=== PATIENT | female | born 1970 | race Hispanic/Latino ===

== ENCOUNTER 2020-04-18 09:25 | Emergency (ER) | payer OTHER ==
[~2020-04-18] VITALS: Ht 154.9 cm; Wt 97.1 kg
[2020-04-18] MEDS ORDERED: SODIUM CHLORIDE 0.9% 1000ML 1,000 ML IV SCH (09:45)
[2020-04-18] MEDS ORDERED: ONDANSETRON HCL INJ 2MG/ML 2ML 2 MG/ML VIAL IV PRN (09:45)
[2020-04-18] MEDS ORDERED: FENTANYL CITRATE/PF 100MCG/2 ML INJ IV ONE (09:45)
--- NOTE | 2020-04-18 09:48 | Emergency Department Note ---
History of Present Illnes History of Present Illness Chief Complaint: Abdominal Complaints History of Present Illness This is a 50 year old female Chief Complaint Comment GIVEN 2 RX FOR RUQ ABD PAIN. ONSET THURSDAY. NAUSEA NO VOMITING. MENOPAUSE. STILL HAS GALL BLADDER. has tried T3 and acid metal tube cutter at home with only minimal relief. Historian: Patient Arrival Mode: Car Alligator Shear Operator Required: No Onset (how long ago): day(s) (3) Location: RUQ Quality: Sharp Radiation: Reports non-radiation Severity: moderate Onset quality: sudden Duration (how long): day(s) (3) Timing of current episode: intermittent Progression: worsening Chronicity: new Context: Denies recent illness Relieving factors: none Exacerbating factors: none Associated symptoms: Reports other (Nausea) Treatments prior to arrival: none Past Medical/Family History Physician Review I have reviewed the patient's past medical and family history. Any updates have been documented here. Past Medical History Recent Fever: No Clinical Suspicion of Infectio: No New/Unexplained Change in Ment: No Past Medical History: Hypertension Other Medical History: OBESITY Past Surgical History: Social History Physically hurt or threatened: No Review of Systems Review of Systems Constitutional: Reports no symptoms EENTM: Reports no symptoms Cardiovascular: Reports no symptoms Respiratory: Reports no symptoms Gastrointestinal: Reports as per HPI, Reports abdominal pain (RUQ), Reports nausea; Denies vomiting Genitourinary: Reports no symptoms Musculoskeletal: Reports no symptoms Integumentary: Reports no symptoms Neurological: Reports no symptoms Psychological: Reports no symptoms Endocrine: Reports no symptoms Hematological/Lymphatic: Reports no symptoms Physical Exam Related Data Allergies: Coded Allergies: Sulfa (Sulfonamide Antibiotics) (Verified Allergy, Unknown, 04/18/20) Triage Vital Signs Vital Signs Date Time Temp Pulse Resp B/P (MAP) Pulse Ox O2 Delivery O2 Flow Rate FiO2 04/18/20 09:37 98.1 77 18 130/85 100 Room Air Vital signs reviewed: Yes Physical Exam CONSTITUTIONAL Constitutional: Present well-developed, Present well-nourished HENT HENT: Present normocephalic, Present atraumatic, Present oropharynx clear/moist, Present nose normal HENT L/R: Present left ext ear normal, Present right ext ear normal EYES Eyes: Reports PERRL, Reports conjunctivae normal NECK Neck: Present ROM normal PULMONARY Pulmonary: Present effort normal, Present breath sounds normal CARDIOVASCULAR Cardiovascular: Present regular rhythm, Present heart sounds normal, Present capillary refill normal, Present normal rate GASTROINTESTINAL Abdominal: Present soft, Present bowel sounds normal, Present tender (RUQ) GENITOURINARY Genitourinary: Present exam deferred SKIN Skin: Present warm, Present dry MUSCULOSKELETAL Musculoskeletal: Present ROM normal NEUROLOGICAL Neurological: Present alert, Present oriented x 3, Present no gross motor or sensory deficits PSYCHOLOGICAL Psychological: Present mood/affect normal, Present judgement normal Procedures 12 Lead ECG Interpretation ECG Interpretation : Alligator Shear Operator: Interpreted by ED physician Date: Apr 18, 2020 Rhythm: sinus rhythm Rate: normal BPM: 65 QRS axis: normal ST segments normal: Yes T waves normal: Yes Clinical Impression: non-specific ECG Assessment & Plan Medical Decision Making MDM 50-year-old female who presents with medical history significant for hypertension presents to the emergency department for right upper quadrant abdominal pain. This started on Thursday. She was seen by her primary doctor on Thursday and prescribed antacid and Tylenol threes. This has not been helping much. The pain is made worse by eating. Initial differential significant for cholecystitis versus cholelithiasis versus choledocholithiasis versus gastritis versus peptic ulcer disease. Workup shows likely gallstones on ultrasound. Duscussed patient with Dr. Vladislav Alfaro and will schedule for outpatient appointment tomorrow for elective surgery. patient states agreement to plan and appropriate for DC. Will Rx MSIR and Bentyl for pain. Reassessment Reassessment time: 10:45 Reassessment Well appearing, NAD Assessment & Plan Final Impression: (1) Cholelithiases Depart Disposition: HOME, SELF-CARE Last Vital Signs Date Time Temp Pulse Resp B/P (MAP) Pulse Ox O2 Delivery O2 Flow Rate FiO2 04/18/20 09:37 98.1 77 18 130/85 100 Room Air Medications in the ED Ondansetron HCl 4 mg Q4H PRN IV NAUSEA AND VOMITING; Start 04/18/20 at 09:45; Stop 05/18/20 at 09:44; Status UNV Sodium Chloride 1,000 ml @ 100 mls/hr Q10H IV ; Start 04/18/20 at 09:45; Stop 05/18/20 at 09:44; Status UNV Fentanyl Citrate 50 mcg ONCE ONCE IV ; Start 04/18/20 at 09:45; Stop 04/18/20 at 09:46; Status UNV MAR,MAYITO J MD Apr 18, 2020 09:48
[2020-04-18 10:30] LABS: BASOPHILS % 0.2 % (0.0-1.0); EOSINOPHILS # (AUTO) 0.1 (0.0-0.4); EOSINOPHILS % 0.9 % (0.0-6.0); HEMATOCRIT 42.2 % (34.2-44.1); HEMOGLOBIN 13.9 g/dL (12.0-16.0); LYMPHOCYTES # (AUTO) 1.2 (1.0-3.2); LYMPHOCYTES % 13.6 % (18.0-39.1); MEAN CORPUSCULAR HEMOGLOBIN 28.7 pg (28-32); MEAN CORPUSCULAR HGB CONC 32.9 g/dL (31-35); MONOCYTES # (AUTO) 0.5 (0.2-0.8); NEUTROPHILS # (AUTO) 7.1 (2.1-6.9); PLATELET COUNT 294 x10e3/uL (140-360); RED BLOOD COUNT 4.85 x10e6/uL (3.6-5.1); RED CELL DISTRIBUTION WIDTH 12.5 % (11.7-14.4)
--- NOTE | 2020-04-18 10:40 | Diagnostic Imaging Report ---
EXAM: US GALLBLADDER DATE: 04/18/2020 9:53 AM INDICATION: Right upper quadrant pain COMPARISON: None TECHNIQUE: Transverse and longitudinal ritchie scale and color doppler sonographic images of the right upper quadrant were obtained. FINDINGS: LIVER 14.1 cm in the right midclavicular line. Liver is diffusely echogenic with normal contour, no masses. GALLBLADDER Gallbladder is filled with echogenic debris with internal vascularity, possibly artifact due to echogenicity. Negative for thickening, distention or pericholecystic fluid Negative reported sonographic Brown's sign. BILE DUCTS No intra nor extra-hepatic biliary dilation. Common bile duct measures 0.3cm PANCREAS: Visualized portions are normal. RIGHT KIDNEY: 10.8 cm Echogenicity: Normal Collecting System: No hydronephrosis Stones: None Cyst/Mass: None VESSELS: Aorta: Visualized portions are within normal size limits Inferior Vena Cava: Visualized portions are normal Main Portal Vein: 0.8 cm, normal size with hepatopetal flow. FREE FLUID: None IMPRESSION: 1. Gallbladder is full of debris with mild internal vascularity. No evidence of acute cholecystitis. Underlying/intraluminal mass is difficult to exclude given internal vascularity. Negative for biliary dilatation. Consider follow-up contrast enhanced cross-sectional imaging for further evaluation. 2. Hepatic steatosis. Signed by: Marquis Cruz MD on 04/18/2020 10:37 AM
[2020-04-18 10:54] LABS: ALANINE AMINOTRANSFERASE 69 IU/L (0-55); ALBUMIN 3.8 g/dL (3.5-5.0); ALKALINE PHOSPHATASE 56 IU/L (40-150); ANION GAP 13.8 mmol/L (8-16); BLOOD UREA NITROGEN 10 mg/dL (7-26); BUN/CREATININE RATIO 14 (6-25); CALCIUM 9.5 mg/dL (8.4-10.2); CARBON DIOXIDE 21 mmol/L (22-29); CHLORIDE 107 mmol/L (98-107); CREATININE, SERUM 0.73 mg/dL (0.57-1.11); EST GLOMERULAR FILTRATION RATE > 60 ML/MIN (60-); GLUCOSE 96 mg/dL (74-118); POTASSIUM 3.8 mmol/L (3.5-5.1); SODIUM 138 mmol/L (136-145)
[2020-04-18 11:18] LABS: HCG,QUANTITATIVE 1.28 mIU/mL (0-10)
--- OUTSIDE RECORDS SUMMARY | 2020-04-18 11:22 | XMS REPORT | Continuity of Care Document ---
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 Allergies, Adverse Reactions, Alerts This patient has no known allergies or adverse reactions. Medications This patient has no known medications. Procedures This patient has no known procedures. Results Test Description Test Time Test Comments Results Result Comments Source GALLBLADDER 2020-04-18 10:32:[address] [address] Patient Name: JOEY LOMAX MR #: [id number] : 1970 Age/Sex: 50/F Req #: [id number] Adm Physician: Ordered by: Mayito Gore MD Report #: [id number] Location: ER Room/Bed: Procedure: [id number] US/US GALLBLADDER Exam Date: 04/18/20 Exam Time: 0953 REPORT STATUS: Signed EXAM: US GALLBLADDER DATE: 04/18/2020 9:53 AM INDICATION: Right upper quadrant pain COMPARISON: None TECHNIQUE: Transverse and longitudinal ritchie scale and color doppler sonographic images of the right upper quadrant were obtained. FINDINGS: LIVER 14.1 cm in the right midclavicular line. Liver is diffusely echogenic with normal contour, no masses. GALLBLADDER Gallbladder is filled with echogenic debris with internal vascularity, possibly artifact due to echogenicity. Negative for thickening, distention or pericholecystic fluid Negative reported sonographic Brown's sign. BILE DUCTS No intra nor extra-hepatic biliary dilation. Common bile duct measures 0.3cm PANCREAS: Visualized portions are normal. RIGHT KIDNEY: 10.8 cm Echogenicity: Normal Collecting System: No hydronephrosis Stones: None Cyst/Mass: None VESSELS: Aorta: Visualized portions are within normal size limits Inferior Vena Cava: Visualized portions are normal Main Portal Vein: 0.8 cm, normal size with hepatopetal flow. FREE FLUID: None IMPRESSION: 1. Gallbladder is full of debris with mild internal vascularity. No evidence of acute cholecystitis. Underlying/intraluminal mass is difficult to exclude given internal vascularity. Negative for biliary dilatation. Consider follow-up contrast enhanced cross-sectional imaging for further evaluation. 2. Hepatic steatosis. Signed by: Amos Cruz MD on 04/18/2020 10:37 AM Dictated By: AMOS CRUZ MD [id number] Transcribed By: CLAUDIO on 04/18/20 1037 COPY TO: MAYITO GORE MD
[2020-04-18] MEDS ORDERED: BENTYL10 MG/1 ML PO (12:59)
[2020-04-18] MEDS ORDERED: ZOFRAN4 MG PO (13:02)
[2020-04-18 13:13] LABS: BILIRUBIN,URINE NEGATIVE (NEGATIVE); CLARITY,URINE CLEAR (CLEAR); COLOR,URINE YELLOW (YELLOW); KETONES,URINE 1+ (NEGATIVE); LEUKOCYTE ESTERASE ,URINE MODERATE (NEGATIVE); NITRITE,URINE NEGATIVE (NEGATIVE); PROTEIN,URINE DIPSTICK NEGATIVE (NEGATIVE); URINE UROBILINOGEN 1 mg/dL (0.2 - 1)
[2020-04-18 13:16] LABS: BACTERIA,URINE FEW /HPF; EPITHELIAL CELLS,URINE FEW /LPF; RBC,URINE 0-5 /HPF (0-5)
[2020-04-19] MEDS ORDERED: AMLODIPINE BESYL5 MG PO (06:39)
== END 2020-04-18 13:14 | disposition home or self-care (01) ==
LOC: ER 09:36
DX: K80.20 Calculus of gallbladder without cholecystitis without obstruction (principal); R10.11 Right upper quadrant pain; R11.0 Nausea; I10 Essential (primary) hypertension; E66.9 Obesity, unspecified
CPT/HCPCS: 36415; 76705; 80053; 81001; 83690; 84702; 85025; 93005; 99284; J2405; J3010; J7030

== ENCOUNTER 2020-04-18 22:35 | Inpatient (IN) | payer OTHER ==
[~2020-04-18] VITALS: Ht 154.9 cm; Wt 97.5 kg
[~2020-04-18 22:35] MED LIST: BENTYL10 MG/1 ML PO; ZOFRAN4 MG PO
[2020-04-18] MEDS ORDERED: ONDANSETRON HCL INJ 2MG/ML 2ML 2 MG/ML VIAL IV STA (22:47)
[2020-04-18] MEDS ORDERED: MORPHINE SULFATE INJ 4 MG/ML INJ 1ML IV STA (23:02)
[2020-04-18 23:06] LABS: BASOPHILS % 0.3 % (0.0-1.0); HEMATOCRIT 40.8 % (34.2-44.1); HEMOGLOBIN 13.6 g/dL (12.0-16.0); LYMPHOCYTES # (AUTO) 1.1 (1.0-3.2); LYMPHOCYTES % 9.1 % (18.0-39.1); MEAN CORPUSCULAR HGB CONC 33.3 g/dL (31-35); MONOCYTES # (AUTO) 0.6 (0.2-0.8); MONOCYTES % 5.2 % (4.4-11.3); NEUTROPHILS # (AUTO) 9.9 (2.1-6.9); NEUTROPHILS % 84.9 % (38.7-80.0); PLATELET COUNT 278 x10e3/uL (140-360); RED BLOOD COUNT 4.69 x10e6/uL (3.6-5.1); RED CELL DISTRIBUTION WIDTH 12.4 % (11.7-14.4)
[2020-04-18 23:26] LABS: ALANINE AMINOTRANSFERASE 156 IU/L (0-55); ALBUMIN 3.8 g/dL (3.5-5.0); ALKALINE PHOSPHATASE 67 IU/L (40-150); ANION GAP 14.7 mmol/L (8-16); BLOOD UREA NITROGEN 8 mg/dL (7-26); BUN/CREATININE RATIO 10 (6-25); CALCIUM 9.5 mg/dL (8.4-10.2); CARBON DIOXIDE 20 mmol/L (22-29); CHLORIDE 105 mmol/L (98-107); CREATININE, SERUM 0.79 mg/dL (0.57-1.11); EST GLOMERULAR FILTRATION RATE > 60 ML/MIN (60-); GLUCOSE 126 mg/dL (74-118); POTASSIUM 3.7 mmol/L (3.5-5.1); SODIUM 136 mmol/L (136-145)
[2020-04-18 23:27] LABS: AMYLASE 44 U/L (25-125); LIPASE 25 U/L (8-78)
[2020-04-18] MEDS ORDERED: MORPHINE SULFATE INJ 4 MG/ML INJ 1ML IV PRN (23:45)
[2020-04-19] VITALS (7 sets, daily range): BP systolic 90–126; BP diastolic 60–79
[2020-04-19] MEDS: SODIUM CHLORIDE 0.9% 1000ML 1,000 ML IV SCH ×3 (00:17→15:49)
[2020-04-19] MEDS: PIPER-TAZ 3.375 GM 50 ML IV SCH ×4 (00:17→21:27)
[2020-04-19] MEDS: ONDANSETRON HCL INJ 2MG/ML 2ML 2 MG/ML VIAL IV PRN ×3 (01:56→09:48)
[2020-04-19] MEDS: HYDROMORPHONE 1MG/1ML INJ IV PRN ×3 (01:56→09:48)
[2020-04-19 05:18] LABS: BASOPHILS % 0.2 % (0.0-1.0); HEMATOCRIT 43.5 % (34.2-44.1); LYMPHOCYTES # (AUTO) 0.5 (1.0-3.2); LYMPHOCYTES % 2.9 % (18.0-39.1); MEAN CORPUSCULAR HEMOGLOBIN 28.6 pg (28-32); MEAN CORPUSCULAR HGB CONC 32.2 g/dL (31-35); MEAN CORPUSCULAR VOLUME 88.8 fL (81-99); MONOCYTES % 5.6 % (4.4-11.3); NEUTROPHILS # (AUTO) 15.8 (2.1-6.9); NEUTROPHILS % 90.8 % (38.7-80.0); PLATELET COUNT 291 x10e3/uL (140-360); RED CELL DISTRIBUTION WIDTH 12.4 % (11.7-14.4)
[2020-04-19 05:42] LABS: ALANINE AMINOTRANSFERASE 196 IU/L (0-55); ALBUMIN 3.8 g/dL (3.5-5.0); ALBUMIN/GLOBULIN RATIO 0.9 (0.8-2.0); ALKALINE PHOSPHATASE 73 IU/L (40-150); AMYLASE 33 U/L (25-125); ANION GAP 15.8 mmol/L (8-16); BLOOD UREA NITROGEN 11 mg/dL (7-26); BUN/CREATININE RATIO 13 (6-25); CALCIUM 9.7 mg/dL (8.4-10.2); CARBON DIOXIDE 19 mmol/L (22-29); CHLORIDE 106 mmol/L (98-107); CREATININE, SERUM 0.83 mg/dL (0.57-1.11); EST GLOMERULAR FILTRATION RATE > 60 ML/MIN (60-); GLUCOSE 159 mg/dL (74-118); LIPASE 10 U/L (8-78); POTASSIUM 3.8 mmol/L (3.5-5.1); SODIUM 137 mmol/L (136-145)
[2020-04-19] MEDS ORDERED: AMLODIPINE BESYL5 MG PO (06:39)
[2020-04-19 06:56] LABS: LYMPHOCYTES % (MANUAL) 2 % (19-48); MONOCYTES % (MANUAL) 4 % (3.4-9.0); NEUTROPHILS % (MANUAL) 94 % (40-74); PLATELET ESTIMATE ADEQUATE; PLATELET MORPHOLOGY COMMENT NORMAL; RBC MORPHOLOGY COMMENT NORMAL
[2020-04-19] MEDS ORDERED: BUPIVACAINE 0.25%/EPI 30ML SDV INJ ONE (10:49)
[2020-04-19 11:26] LABS: CLARITY,URINE CLOUDY (CLEAR); COLOR,URINE YELLOW (YELLOW)
[2020-04-19 11:27] LABS: AMORPHOUS SEDIMENT,URINE MANY (FEW); BACTERIA,URINE FEW /HPF; BILIRUBIN,URINE MODERATE (NEGATIVE); EPITHELIAL CELLS,URINE RARE /LPF; KETONES,URINE TRACE (NEGATIVE); LEUKOCYTE ESTERASE ,URINE NEGATIVE (NEGATIVE); NITRITE,URINE NEGATIVE (NEGATIVE); PROTEIN,URINE DIPSTICK 1+ (NEGATIVE); URINE UROBILINOGEN 1 mg/dL (0.2 - 1); WBC,URINE (MAN) 0-5 /HPF (0-5)
[2020-04-19] MEDS: PANTOPRAZOLE 40 MG 10ML VIAL IV SCH (12:30)
[2020-04-19] MEDS: METRONIDAZOLE 500MG/NS 100ML 100 ML IV SCH ×2 (13:00→17:51)
[2020-04-19] MEDS: KETOROLAC TROMETHAMINE 30 MG/ML VIAL IV PRN (18:59)
[2020-04-19] MEDS ORDERED: DEXAMETHASONE SOD PHOS INJ 4 MG/ML VIAL ONE (19:18)
[2020-04-19] MEDS ORDERED: KETOROLAC TROMETHAMINE 30 MG/ML VIAL ONE (19:18)
[2020-04-19] MEDS ORDERED: SEVOFLURANE INHAL SOLN 250 ML PEN BTL ONE (19:18)
[2020-04-19] MEDS ORDERED: FENTANYL CITRATE/PF 100MCG/2 ML INJ ONE (19:18)
[2020-04-19] MEDS ORDERED: ROCURONIUM BROMIDE 10 MG/ML 5ML VIAL IV ONE (19:18)
[2020-04-19] MEDS ORDERED: PROPOFOL IV EMULSION 10 MG/ML 20 ML VIAL ONE (19:18)
[2020-04-19] MEDS ORDERED: MIDAZOLAM HCL 2 MG/2 ML VIAL ONE (19:18)
[2020-04-19] MEDS ORDERED: ONDANSETRON HCL INJ 2MG/ML 2ML 2 MG/ML VIAL ONE (19:18)
[2020-04-19] MEDS ORDERED: LIDOCAINE HCL 2% LOCAL INJ 5 ML SDV VIAL INJ ONE (19:18)
[2020-04-20] VITALS (7 sets, daily range): BP systolic 97–136; BP diastolic 64–87
[2020-04-20] MEDS: METRONIDAZOLE 500MG/NS 100ML 100 ML IV SCH ×4 (00:49→18:10)
[2020-04-20] MEDS: SODIUM CHLORIDE 0.9% 1000ML 1,000 ML IV SCH ×3 (00:49→21:30)
[2020-04-20 05:17] LABS: BASOPHILS % 0.2 % (0.0-1.0); HEMATOCRIT 36.9 % (34.2-44.1); HEMOGLOBIN 11.8 g/dL (12.0-16.0); LYMPHOCYTES # (AUTO) 1.1 (1.0-3.2); LYMPHOCYTES % 8.8 % (18.0-39.1); MEAN CORPUSCULAR HEMOGLOBIN 28.9 pg (28-32); MEAN CORPUSCULAR VOLUME 90.2 fL (81-99); MONOCYTES # (AUTO) 1.1 (0.2-0.8); MONOCYTES % 8.5 % (4.4-11.3); NEUTROPHILS # (AUTO) 10.2 (2.1-6.9); NEUTROPHILS % 81.9 % (38.7-80.0); PLATELET COUNT 220 x10e3/uL (140-360); RED BLOOD COUNT 4.09 x10e6/uL (3.6-5.1)
[2020-04-20 05:40] LABS: ALANINE AMINOTRANSFERASE 172 IU/L (0-55); ALBUMIN 2.7 g/dL (3.5-5.0); ALBUMIN/GLOBULIN RATIO 0.8 (0.8-2.0); ALKALINE PHOSPHATASE 48 IU/L (40-150); ANION GAP 12.1 mmol/L (8-16); BLOOD UREA NITROGEN 17 mg/dL (7-26); BUN/CREATININE RATIO 21 (6-25); CALCIUM 9.3 mg/dL (8.4-10.2); CARBON DIOXIDE 22 mmol/L (22-29); CHLORIDE 112 mmol/L (98-107); CREATININE, SERUM 0.81 mg/dL (0.57-1.11); EST GLOMERULAR FILTRATION RATE > 60 ML/MIN (60-); GLUCOSE 101 mg/dL (74-118); POTASSIUM 4.1 mmol/L (3.5-5.1); SODIUM 142 mmol/L (136-145)
[2020-04-20] MEDS: PIPER-TAZ 3.375 GM 50 ML IV SCH ×3 (06:29→21:30)
[2020-04-20] MEDS: PANTOPRAZOLE 40 MG 10ML VIAL IV SCH (12:54)
[2020-04-20] MEDS ORDERED: HYDROCODONE/APAP 7.5MG-325MG 1 EA TAB PO PRN (13:45)
[2020-04-20] MEDS: KETOROLAC TROMETHAMINE 30 MG/ML VIAL IV PRN (15:04)
[2020-04-21] VITALS: BP 107/75
[2020-04-21] MEDS: METRONIDAZOLE 500MG/NS 100ML 100 ML IV SCH ×3 (00:49→12:00)
[2020-04-21 04:00] VITALS: BP 115/71
[2020-04-21] MEDS: PIPER-TAZ 3.375 GM 50 ML IV SCH (05:28)
[2020-04-21] MEDS: SODIUM CHLORIDE 0.9% 1000ML 1,000 ML IV SCH (06:33)
[2020-04-21 08:23] VITALS: BP 115/71
[2020-04-21 08:24] VITALS: BP 130/83
[2020-04-21 08:32] VITALS: BP 130/83
[2020-04-21 08:55] LABS: BASOPHILS # (AUTO) 0.1 (0.0-0.1); BASOPHILS % 0.6 % (0.0-1.0); EOSINOPHILS # (AUTO) 0.2 (0.0-0.4); EOSINOPHILS % 2.1 % (0.0-6.0); HEMATOCRIT 39.3 % (34.2-44.1); HEMOGLOBIN 12.2 g/dL (12.0-16.0); LYMPHOCYTES # (AUTO) 2.1 (1.0-3.2); LYMPHOCYTES % 26.5 % (18.0-39.1); MEAN CORPUSCULAR HEMOGLOBIN 28.4 pg (28-32); MEAN CORPUSCULAR VOLUME 91.4 fL (81-99); MONOCYTES # (AUTO) 0.6 (0.2-0.8); MONOCYTES % 7.4 % (4.4-11.3); NEUTROPHILS % 62.9 % (38.7-80.0); PLATELET COUNT 281 x10e3/uL (140-360); RED CELL DISTRIBUTION WIDTH 13.1 % (11.7-14.4)
[2020-04-21 09:22] LABS: ALANINE AMINOTRANSFERASE 161 IU/L (0-55); ALBUMIN 3.1 g/dL (3.5-5.0); ALBUMIN/GLOBULIN RATIO 0.8 (0.8-2.0); ALKALINE PHOSPHATASE 53 IU/L (40-150); ANION GAP 15.5 mmol/L (8-16); BLOOD UREA NITROGEN 29 mg/dL (7-26); BUN/CREATININE RATIO 36 (6-25); CALCIUM 9.5 mg/dL (8.4-10.2); CARBON DIOXIDE 20 mmol/L (22-29); CHLORIDE 111 mmol/L (98-107); CREATININE, SERUM 0.81 mg/dL (0.57-1.11); EST GLOMERULAR FILTRATION RATE > 60 ML/MIN (60-); GLUCOSE 81 mg/dL (74-118); POTASSIUM 3.5 mmol/L (3.5-5.1); SODIUM 143 mmol/L (136-145)
[2020-04-21 11:51] VITALS: BP 122/77
[2020-04-21] MEDS ORDERED: TYLENOL WITH C1 EACH PO (11:57)
[2020-04-21] MEDS ORDERED: LEVAQUIN500 MG PO (11:57)
[2020-04-21] MEDS ORDERED: LEVOFLOXACIN 500 MG TAB PO SCH (12:00)
[2020-04-21] MEDS: PANTOPRAZOLE 40 MG 10ML VIAL IV SCH (12:18)
== END 2020-04-21 13:00 | disposition home or self-care (01) | DRG 418 ==
LOC: ER 23:00 → ERHOLD 23:42 → INTOOBSV 23:42 → MED/SURG 04-19 01:26 → OBSVTOIN 04-19 12:18
PROVIDERS: ADMIT Surgery; ATTEND Surgery
PROC: 0FT44ZZ Resection of Gallbladder, Percutaneous Endoscopic Approach (ICD-10-PCS; principal; 2020-04-19 10:30)
DX: K80.00 Calculus of gallbladder with acute cholecystitis without obstruction (principal); Z68.41 Body mass index [BMI] 40.0-44.9, adult; Z11.59 Encounter for screening for other viral diseases; I10 Essential (primary) hypertension; K82.A1 Gangrene of gallbladder in cholecystitis; E66.01 Morbid (severe) obesity due to excess calories
CPT/HCPCS: 36415; 80053; 81001; 81025; 82150; 83690; 85025; 88304; 99284; C1766; G0378; J1100; J1170; J1885; J2001; J2250; J2270; J2405; J2543; J3010; J7030; U0002